=== PATIENT | female | born 1985 | race Caucasian/White ===

== ENCOUNTER 2019-01-29 15:20 | Emergency (ER) | payer OTHER, SELFPAY ==
[2019-01-29] MEDS ORDERED: ONDANSETRON 4 MG (ODT) TAB ONE (15:33)
[2019-01-29] MEDS ORDERED: ACETAMINOPHEN 500 MG TAB ONE (15:33)
[2019-01-29] MEDS ORDERED: NA CHLORIDE 0.9% 1,000 ML ONE ×2 (16:43→19:30)
[2019-01-29 17:12] LABS: Absolute Lymphocytes (CBC) 0.7 K/uL (0.7-4.9); Basophils % 0.1 % (0-1.3); Hematocrit 38.4 % (36.0-45.0); MPV 7.9 fL (7.6-11.3); RBC Red Blood Cell Count 4.39 M/uL (3.86-4.86)
[2019-01-29 17:41] LABS: Albumin 3.7 g/dL (3.4-5.0); Bilirubin Direct 0.2 mg/dL (0-0.2); Bilirubin Total 0.5 mg/dL (0.2-1.0); Potassium 3.4 mmol/L (3.5-5.1); Protein, Total 7.6 g/dL (6.4-8.2)
[2019-01-29 17:42] LABS: Blood Morphology Comment NOT SEEN (NOT SEEN); Platelet Estimate ADEQ; Urine White Blood Cell Casts OK
[2019-01-29] MEDS ORDERED: FENTANYL CITR 100 MCG/2 ML ONE (18:16)
[2019-01-29 18:19] LABS: Urine Blood NEGATIVE (NEG); Urine Glucose NEGATIVE (NEG); Urine Protein NEGATIVE (NEG); Urine pH 8.5 (5.0-7.0)
--- NOTE | 2019-01-29 19:14 | RAD REPORT ---
EXAM DESCRIPTION: CT - Abdomen Pelvis W Contrast - 01/29/2019 6:56 pm CLINICAL HISTORY: Abdominal pain diarrhea COMPARISON: none. TECHNIQUE: Computed axial tomography of the abdomen pelvis was obtained. 100 cc Isovue-300 was admin istered intravenously. Oral contrast was not requested which limits evaluation of bowel. All CT scans are performed using dose optimization technique as appropriate and may include automated exposure control or mA/KV adjustment according to patient size. FINDINGS: The liver, spleen, pancreas, adrenal and kidneys appear unremarkable. There is no evidence of diverticulitis. The wall of the descending and sigmoid colon is mildly thicke tomás. Normal appendix Tiny umbilical hernia IMPRESSION: Mild thickening of the wall of the descending and sigmoid colon consistent with colitis.
[2019-01-29] MEDS ORDERED: OSELTAMIVIR 75 MG CAP ONE (19:29)
[2019-01-29] MEDS ORDERED: CIPROFLOXACIN HCL 500 MG TAB ONE (19:30)
[2019-01-29] MEDS ORDERED: IBUPROFEN 400 MG TAB ONE (19:30)
--- NOTE | 2019-01-29 22:11 | EDPHYS ---
Physician Documentation [facility] Name: Maame Tobin Age: 33 yrs Sex: Female : 1985 Arrival Date: 01/29/2019 Time: 15:22 Bed 15 Private MD: ED Physician Yvon Perry HPI: 01/29 16:24 This 33 yrs old Female presents to ER via Ambulatory with complaints of snw Diarrhea. 16:24 The patient presents to the emergency department with nausea, diarrhea. Onset: The snw symptoms/episode began/occurred suddenly, today. Possible causes: unknown. The symptoms are aggravated by nothing. Associated signs and symptoms: Pertinent positives: fever, nausea, bodyaches, fatigue. Severity of symptoms: At their worst the symptoms were moderate today. The patient has not experienced similar symptoms in the past. The patient has not recently seen a physician. 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 - Social history:: Smoking status: Patient/guardian denies using tobacco. - Ebola Screening: : No symptoms or risks identified at this time. ROS: 16:23 Constitutional: Negative for fever and weight loss, +chills, + bodyaches, +fatigue snw Eyes: Negative for injury, pain, redness, and discharge, ENT: Negative for injury, pain, and discharge. 16:23 Neck: Negative for injury, pain, and swelling, Cardiovascular: Negative for chest pain, palpitations, and edema, Respiratory: Negative for shortness of breath, cough, wheezing, and pleuritic chest pain. 16:23 Back: Negative for injury and pain, : Negative for injury, bleeding, discharge, and swelling, MS/Extremity: Negative for injury and deformity, Skin: Negative for injury, rash, and discoloration, Neuro: Negative for headache, weakness, numbness, tingling, and seizure. 16:23 Abdomen/GI: Positive for nausea, diarrhea, anorexia. Exam: 16:23 Constitutional: This is a well developed, well nourished patient who is awake, alert, snw and in no acute distress. Head/Face: Normocephalic, atraumatic. Eyes: Pupils equal round and reactive to light, extra-ocular motions intact. Lids and lashes normal. Conjunctiva and sclera are non-icteric and not injected. Cornea within normal limits. Periorbital areas with no swelling, redness, or edema. ENT: Nares patent. No nasal discharge, no septal abnormalities noted. Tympanic membranes are normal and external auditory canals are clear. Oropharynx with no redness, swelling, or masses, exudates, or evidence of obstruction, uvula midline. Mucous membranes moist. Neck: Trachea midline, no thyromegaly or masses palpated, and no cervical lymphadenopathy. Supple, full range of motion without nuchal rigidity, or vertebral point tenderness. No Meningismus. Chest/axilla: Normal chest wall appearance and motion. Nontender with no deformity. No lesions are appreciated. 16:23 Respiratory: Lungs have equal breath sounds bilaterally, clear to auscultation and percussion. No rales, rhonchi or wheezes noted. No increased work of breathing, no retractions or nasal flaring. Abdomen/GI: Soft, non-tender, with normal bowel sounds. No distension or tympany. No guarding or rebound. No evidence of tenderness throughout. Back: No spinal tenderness. No costovertebral tenderness. Full range of motion. Skin: Warm, dry with normal turgor. Normal color with no rashes, no lesions, and no evidence of cellulitis. MS/ Extremity: Pulses equal, no cyanosis. Neurovascular intact. Full, normal range of motion. Neuro: Awake and alert, GCS 15, oriented to person, place, time, and situation. Cranial nerves II-XII grossly intact. Motor strength 5/5 in all extremities. Sensory grossly intact. Cerebellar exam normal. Normal gait. Psych: Awake, alert, with orientation to person, place and time. Behavior, mood, and affect are within normal limits. 16:23 Cardiovascular: Rate: tachycardic, Heart sounds: normal, Edema: is not appreciated. Vital Signs: 15:31 BP 110 / 63; Pulse 122; Resp 22; Temp 100.8; Pulse Ox 98% on R/A; Weight 95.25 kg; la1 Height 5 ft. 3 in. (160.02 cm); 17:14 BP 101 / 62; Pulse 110; Resp 18; Pulse Ox 98% on R/A; ph 18:30 BP 110 / 68; Pulse 108; Resp 22; Pulse Ox 99% on R/A; ph 19:21 BP 96 / 62; Pulse 113; Resp 22; Temp 103.1(O); Pulse Ox 100% ; jb4 19:56 BP 101 / 54; Pulse 113; Resp 20; Pulse Ox 99% on R/A; jb4 20:45 BP 83 / 55; Pulse 117; Resp 16; Temp 100.1(O); Pulse Ox 99% on R/A; jb4 21:45 BP 89 / 55; Pulse 121; Resp 20; Pulse Ox 99% on R/A; jb4 22:08 BP 104 / 60 (man/); Pulse 109; Resp 18; Pulse Ox 99% on R/A; jb4 15:31 Body Mass Index 37.20 (95.25 kg, 160.02 cm) la1 MDM: 15:54 Patient medically screened. snw 22:11 Data reviewed: vital signs, nurses notes. Data interpreted: Pulse oximetry: on room air snw is 99 %. Interpretation: normal. Counseling: I had a detailed discussion with the patient and/or guardian regarding: the historical points, exam findings, and any diagnostic results supporting the discharge/admit diagnosis, lab results, radiology results, the need for outpatient follow up, to return to the emergency department if symptoms worsen or persist or if there are any questions or concerns that arise at home. Special discussion: Based on the patient's Hx, exam, and Dx evaluation, there is no indication for emergent surgery or inpatient Tx. It is understood by the patient/guardian that if the Sx's persist or worsen they need to return immediately for re-evaluation. Based on the history and exam findings, there is no indication for further emergent testing or inpatient evaluation. I discussed with the patient/guardian the need to see the primary care provider for further evaluation of the symptoms. 01/29 15:34 Order name: Flu; Complete Time: 16:29 ss 01/29 16:14 Order name: Urine Dipstick--Ancillary (enter results); Complete Time: 18:34 snw 01/29 16:30 Order name: Basic Metabolic Panel; Complete Time: 17:42 snw 01/29 16:30 Order name: CBC with Diff; Complete Time: 17:45 snw 01/29 16:30 Order name: Creatinine for Radiology; Complete Time: 17:42 snw 01/29 16:30 Order name: Hepatic Function; Complete Time: 17:42 snw 01/29 16:30 Order name: Lipase; Complete Time: 17:42 snw 01/29 17:20 Order name: CT Abd/Pelvis - IV Contrast Only; Complete Time: 19:23 snw 01/29 17:20 Order name: Test, Serum; Complete Time: 18:34 snw 01/29 17:43 Order name: CBC Smear Scan; Complete Time: 17:45 EDMS 01/29 16:30 Order name: Labs collected and sent; Complete Time: 17:07 snw Administered Medications: 15:37 Drug: Tylenol 1000 mg Route: PO; la1 18:36 Follow up: Response: No adverse reaction ph 15:37 Drug: Zofran 4 mg Route: PO; la1 18:35 Follow up: Response: No adverse reaction ph 17:03 Drug: NS 0.9% 1000 ml Route: IV; Rate: 1 bolus; Site: right antecubital; ph 21:15 Follow up: Response: No adverse reaction; IV Status: Completed infusion; IV Intake: jb4 1000ml 18:35 Drug: fentaNYL (PF) 50 mcg Route: IVP; Site: right antecubital; ph 19:00 Follow up: Response: No adverse reaction; Pain is decreased; RASS: Alert and Calm (0) jb4 19:41 Drug: Tamiflu 75 mg Route: PO; jb4 20:58 Follow up: Response: No adverse reaction jb4 19:42 Drug: NS 0.9% 1000 ml Route: IV; Rate: 1 bolus; Site: right antecubital; jb4 22:00 Follow up: Response: No adverse reaction; Blood pressure is elevated; IV Status: jb4 Completed infusion; IV Intake: 1000ml 19:42 Drug: Motrin 400 mg Route: PO; jb4 20:58 Follow up: Response: No adverse reaction; Temperature is decreased jb4 19:43 Drug: Cipro 500 mg Route: PO; jb4 20:58 Follow up: Response: No adverse reaction jb4 22:14 Not Given (Physician Discretion): NS 0.9% 500 ml IV at bolus once jb4 Disposition: 01/29/19 22:10 Discharged to Home. Impression: Infectious gastroenteritis and colitis, unspecified, Influenza due to unidentified influenza virus. - Condition is Stable. - Discharge Instructions: Food Choices to Help Relieve Diarrhea, Adult, Diarrhea, Adult, Fever, Adult, Influenza, Adult, Rehydration, Adult, Colitis. - Prescriptions for Bentyl 20 mg Oral Tablet - take 2 tablet by ORAL route every 6 hours As needed; 40 tablet. Cipro 500 mg Oral Tablet - take 1 tablet by ORAL route every 12 hours for 7 days; 14 tablet. promethazine 25 mg Oral Tablet - take 1 tablet by ORAL route every 6 hours As needed; 20 tablet. Tamiflu 75 mg Oral Capsule - take 1 tablet by ORAL route every 12 hours for 5 days; 10 tablet. - Medication Reconciliation Form, Thank You Letter, Antibiotic Education, Prescription Opioid Use, Work release form form. - Follow up: Emergency Department; When: As needed; Reason: Worsening of condition. Follow up: Private Physician; When: 2 - 3 days; Reason: Recheck today's complaints, Continuance of care, Re-evaluation by your physician. Signatures: Dispatcher [employer] EDOR Edwina Bennett FNP-C FNP-Casa Herndon RN RN la1 Ruth Hook RN RN Wale Oliveira RN RN jb4 Corrections: (The following items were deleted from the chart) 22:26 22:10 01/29/2019 22:10 Discharged to Home. Impression: Infectious gastroenteritis and jb4 colitis, unspecified; Influenza due to unidentified influenza virus. Condition is Stable. Discharge Instructions: Food Choices to Help Relieve Diarrhea, Adult, Diarrhea, Adult, Fever, Adult, Influenza, Adult, Rehydration, Adult, Colitis. Prescriptions for Bentyl 20 mg Oral Tablet - take 2 tablet by ORAL route every 6 hours As needed; 40 tablet, Cipro 500 mg Oral Tablet - take 1 tablet by ORAL route every 12 hours for 7 days; 14 tablet, promethazine 25 mg Oral Tablet - take 1 tablet by ORAL route every 6 hours As needed; 20 tablet, Tamiflu 75 mg Oral Capsule - take 1 tablet by ORAL route every 12 hours for 5 days; 10 tablet. and Forms are Medication Reconciliation Form, Thank You Letter, Antibiotic Education, Prescription Opioid Use. Follow up: Emergency Department; When: As needed; Reason: Worsening of condition. Follow up: Private Physician; When: 2 - 3 days; Reason: Recheck today's complaints, Continuance of care, Re-evaluation by your physician. snw
--- NOTE | 2019-01-29 22:11 | ER ---
Nurse's Notes [facility] Name: Maame Tobin Age: 33 yrs Sex: Female : 1985 Arrival Date: 01/29/2019 Time: 15: Bed 15 Private MD: Diagnosis: Infectious gastroenteritis and colitis, unspecified;Influenza due to unidentified influenza virus Presentation: 01/29 15:30 Presenting complaint: Patient states: Fever, chills, body aches, muscle spasms, la1 vomiting, diarrhea, able to sip water but otherwise not tolerating PO. Transition of care: patient was not received from another setting of care. Onset of symptoms was January 29, 2019. Risk Assessment: Do you want to hurt yourself or someone else? Patient reports no desire to harm self or others. Initial Sepsis Screen: Does the patient have a suspected source of infection?. Care prior to arrival: None. 15:30 Method Of Arrival: Ambulatory la1 15:30 Acuity: SHALOM 3 la1 17:07 Initial Sepsis Screen: Does the patient meet any 2 criteria?. 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 - Social history:: Smoking status: Patient/guardian denies using tobacco. - Ebola Screening: : No symptoms or risks identified at this time. Screenin:06 Abuse screen: Denies threats or abuse. Denies injuries from another. Nutritional ph screening: No deficits noted. Tuberculosis screening: No symptoms or risk factors identified. Fall Risk None identified. Assessment: 17:04 General: Appears in no apparent distress. uncomfortable, well groomed, Behavior is ph calm, cooperative, appropriate for age, Reports chills for fever for 12-24 hours. Pain: Complains of pain in epigastric area, right upper quadrant and left upper quadrant. Neuro: Level of Consciousness is awake, alert, obeys commands, Oriented to person, place, time, situation. Cardiovascular: Capillary refill < 3 seconds in bilateral fingers Patient's skin is warm and dry. Respiratory: Airway is patent Respiratory effort is even, unlabored, Respiratory pattern is regular, symmetrical. GI: Reports diarrhea, nausea, vomiting. Derm: Skin is intact, Skin is pink, warm \\T\\ dry. 18:37 Reassessment: Patient appears in no apparent distress at this time. Patient and/or ph family updated on plan of care and expected duration. Pain level reassessed. Patient is alert, oriented x 3, equal unlabored respirations, skin warm/dry/pink. 19:10 Reassessment: Patient and/or family updated on plan of care and expected duration. Pain jb4 level reassessed. Patient is alert, oriented x 3, equal unlabored respirations, skin warm/dry/pink. PT is back from CT, reports feeling better. 19:25 Reassessment: B/p 96/62 temp 103.1 provider notified, see MAR for orders. jb4 20:43 Reassessment: Patient appears in no apparent distress at this time. Patient and/or jb4 family updated on plan of care and expected duration. Pain level reassessed. Patient is alert, oriented x 3, equal unlabored respirations, skin warm/dry/pink. 20:50 Reassessment: Temperature lowered. Blood decreased to 83/55, HR remains elevated at jb4 117, provider notified see MAR for orders. 22:10 Reassessment: Patient appears in no apparent distress at this time. Patient and/or jb4 family updated on plan of care and expected duration. Pain level reassessed. Patient is alert, oriented x 3, equal unlabored respirations, skin warm/dry/pink. Blood pressure increased to 104/60 after 2nd bolus, provider notified. 22:24 Reassessment: Patient appears in no apparent distress at this time. Patient and/or jb4 family updated on plan of care and expected duration. Pain level reassessed. Patient is alert, oriented x 3, equal unlabored respirations, skin warm/dry/pink. PT verbalized understanding of d/c and follow up instructions. Assited to vehicle via wheel chair. Vital Signs: 15:31 BP 110 / 63; Pulse 122; Resp 22; Temp 100.8; Pulse Ox 98% on R/A; Weight 95.25 kg; la1 Height 5 ft. 3 in. (160.02 cm); 17:14 BP 101 / 62; Pulse 110; Resp 18; Pulse Ox 98% on R/A; ph 18:30 BP 110 / 68; Pulse 108; Resp 22; Pulse Ox 99% on R/A; ph 19:21 BP 96 / 62; Pulse 113; Resp 22; Temp 103.1(O); Pulse Ox 100% ; jb4 19:56 BP 101 / 54; Pulse 113; Resp 20; Pulse Ox 99% on R/A; jb4 20:45 BP 83 / 55; Pulse 117; Resp 16; Temp 100.1(O); Pulse Ox 99% on R/A; jb4 21:45 BP 89 / 55; Pulse 121; Resp 20; Pulse Ox 99% on R/A; jb4 22:08 BP 104 / 60 (man/); Pulse 109; Resp 18; Pulse Ox 99% on R/A; jb4 15:31 Body Mass Index 37.20 (95.25 kg, 160.02 cm) la1 ED Course: 15:22 Patient arrived in ED. as 15:30 Triage completed. la1 15:31 Arm band placed on left wrist. la1 15:51 [facility]C [facility] snw 15:51 Yvon Perry MD is Attending Physician. snw 16:13 Ruth Hook, SHRUTI is Primary Nurse. ph 17:03 Inserted saline lock: 20 gauge in right antecubital area, using aseptic technique. ph 17:06 Patient has correct armband on for positive identification. Placed in gown. Bed in low ph position. Call light in reach. Side rails up X 1. Pulse ox on. NIBP on. 17:24 Radiology exam delayed due to lab results not completed at this time. (BUN/Creatinine) vm2 test not completed at this time. 18:00 Radiology exam delayed due to test not completed at this time. sj 18:56 CT Abd/Pelvis - IV Contrast Only In Process Unspecified. EDMS 22:25 No provider procedures requiring assistance completed. IV discontinued, intact, jb4 bleeding controlled, No redness/swelling at site. Pressure dressing applied. Administered Medications: 15:37 Drug: Tylenol 1000 mg Route: PO; la1 18:36 Follow up: Response: No adverse reaction ph 15:37 Drug: Zofran 4 mg Route: PO; la1 18:35 Follow up: Response: No adverse reaction ph 17:03 Drug: NS 0.9% 1000 ml Route: IV; Rate: 1 bolus; Site: right antecubital; ph 21:15 Follow up: Response: No adverse reaction; IV Status: Completed infusion; IV Intake: jb4 1000ml 18:35 Drug: fentaNYL (PF) 50 mcg Route: IVP; Site: right antecubital; ph 19:00 Follow up: Response: No adverse reaction; Pain is decreased; RASS: Alert and Calm (0) jb4 19:41 Drug: Tamiflu 75 mg Route: PO; jb4 20:58 Follow up: Response: No adverse reaction jb4 19:42 Drug: NS 0.9% 1000 ml Route: IV; Rate: 1 bolus; Site: right antecubital; jb4 22:00 Follow up: Response: No adverse reaction; Blood pressure is elevated; IV Status: jb4 Completed infusion; IV Intake: 1000ml 19:42 Drug: Motrin 400 mg Route: PO; jb4 20:58 Follow up: Response: No adverse reaction; Temperature is decreased jb4 19:43 Drug: Cipro 500 mg Route: PO; jb4 20:58 Follow up: Response: No adverse reaction jb4 22:14 Not Given (Physician Discretion): NS 0.9% 500 ml IV at bolus once jb4 Intake: 21:15 IV: 1000ml; Total: 1000ml. jb4 22:00 IV: 1000ml; Total: 2000ml. jb4 Outcome: 22:10 Discharge ordered by . snw 22:25 Discharged to home via wheelchair, with family. jb4 22:25 Condition: stable 22:25 Discharge instructions given to patient, family, Instructed on discharge instructions, follow up and referral plans. medication usage, Demonstrated understanding of instructions, follow-up care, medications, Prescriptions given X 4. 22:26 Patient left the ED. jb4 Signatures: Dispatcher [employer] EDMS Edwina Bennett, MARLYN-C PROFESSOR OF HISTORICAL THEOLOGY-CsnBeth Vega Amelia as Attema, Lee, RN RN Ruth Whelan RN RN ph Bryson, James, RN RN jb4 Caridad Kelsey Corrections: (The following items were deleted from the chart) 18:37 17:04 Pain: Complains of pain in "all over" ph ph 18:57 17:14 BP 101 / 62; Pulse 110bpm; Resp 18bpm; Pulse Ox 98% RA; ph ph 19:01 17:14 BP 101 / 62; Pulse 110bpm; Resp 18bpm; Pulse Ox 98% RA; Temp 99.6F Oral; ph ph 20:57 20:45 BP 93 / 44; Pulse 117bpm; Resp 16bpm; Pulse Ox 99% RA; Temp 100.1F Oral; jb4 jb4
[2019-01-29 23:15] VITALS: O2SAT 99
[2019-01-29 23:16] VITALS: TEMP 100.1
[2019-01-29 23:18] VITALS: BP 104/60
== END 2019-01-29 22:26 | disposition home or self-care (01) ==
LOC: ER 15:20
DX: A09 Infectious gastroenteritis and colitis, unspecified (principal); J10.1 Influenza due to other identified influenza virus with other respiratory manifestations
CPT/HCPCS: 36415; 74177; 80048; 80076; 81003; 83690; 84703; 85025; 87804; 96361; 96374; 99284; J3010; J7030; Q9967